=== PATIENT | female | born 1950 | race Caucasian/White ===

== ENCOUNTER → 2021-02-28 | Outpatient (CLI) | payer MEDICARE | LOC: US 08:55 | PROVIDERS: ATTEND Internal Medicine | DX: R74.01 Elevation of levels of liver transaminase levels (principal) | CPT/HCPCS: 76705 ==

== ENCOUNTER → 2021-05-13 | Outpatient (CLI) | payer MEDICARE | LOC: MAMMO 10:17 | PROVIDERS: ATTEND Internal Medicine | DX: Z12.31 Encounter for screening mammogram for malignant neoplasm of breast (principal); Z13.820 Encounter for screening for osteoporosis | CPT/HCPCS: 77067; 77080 ==

== ENCOUNTER → 2021-05-15 | Outpatient (CLI) | payer MEDICARE | LOC: CT 11:43 | PROVIDERS: ATTEND Internal Medicine | DX: J44.9 Chronic obstructive pulmonary disease, unspecified (principal) | CPT/HCPCS: 71250 ==

== ENCOUNTER 2021-09-18 03:00 | Outpatient (RCR) | payer SELFPAY | END 2021-10-14 | LOC: RESP 03:00 | PROVIDERS: ATTEND Family Medicine | DX: J44.9 Chronic obstructive pulmonary disease, unspecified (principal); E11.65 Type 2 diabetes mellitus with hyperglycemia; Z86.16 Personal history of COVID-19 | CPT/HCPCS: 94626 ×5; 94799; G0238 ×5 ==

== ENCOUNTER 2021-10-23 10:00 | Outpatient (RCR) | payer MEDICARE, OTHER | END 2021-11-11 | LOC: RESP 10:00 | PROVIDERS: ATTEND Family Medicine | DX: J44.9 Chronic obstructive pulmonary disease, unspecified (principal) | CPT/HCPCS: 94626 ×7; G0238 ×7 ==

== ENCOUNTER 2021-11-13 09:42 | Outpatient (RCR) | payer OTHER | END 2021-12-12 | LOC: RESP 09:42 | PROVIDERS: ATTEND Family Medicine | DX: J44.9 Chronic obstructive pulmonary disease, unspecified (principal) | CPT/HCPCS: 94626 ×8; G0238 ×8 ==

== ENCOUNTER → 2022-01-27 | Outpatient (CLI) | payer MEDICARE | LOC: RAD 13:45 | PROVIDERS: ATTEND Family Medicine | DX: M25.552 Pain in left hip (principal); M54.42 Lumbago with sciatica, left side; N18.32 Chronic kidney disease, stage 3b | CPT/HCPCS: 72110 ==

== ENCOUNTER → 2022-02-03 | Outpatient (CLI) | payer MEDICARE | LOC: US 12:36 | PROVIDERS: ATTEND Family Medicine | DX: M54.42 Lumbago with sciatica, left side (principal); N18.32 Chronic kidney disease, stage 3b | CPT/HCPCS: 76770 ==